=== PATIENT | female | born 1955 | race Asian ===

== ENCOUNTER 2018-02-13 08:17 | Day surgery (SDC) | payer OTHER ==
[2018-02-13] MEDS ORDERED: PROPOFOL 40 ML (09:29)
== END 2018-02-13 11:12 | disposition home or self-care (01) ==
LOC: GIL 08:17
DX: Z12.11 Encounter for screening for malignant neoplasm of colon (principal); K64.8 Other hemorrhoids; K57.30 Diverticulosis of large intestine without perforation or abscess without bleeding; I10 Essential (primary) hypertension; E78.5 Hyperlipidemia, unspecified; E11.9 Type 2 diabetes mellitus without complications; Z86.73 Personal history of transient ischemic attack (TIA), and cerebral infarction without residual deficits
CPT/HCPCS: 45378; 82962